=== PATIENT | female | born 1985 | race African-American/Black ===

== ENCOUNTER 2017-07-28 23:13 | Emergency (ER) | payer OTHER ==
[~2017-07-28] VITALS: Ht 162.6 cm; Wt 59.0 kg
[2017-07-28 23:47] LABS: URINE BILIRUBIN NEGATIVE (Negative); URINE BLOOD 2+ (Negative); URINE CLARITY SL CLOUDY; URINE COLOR YELLOW; URINE GLUCOSE-RANDOM NEGATIVE (Negative); URINE KETONES NEGATIVE (Negative); URINE NITRITE-REFLEX NEGATIVE (Negative); URINE PROTEIN 1+ (Negative)
[2017-07-28 23:49] LABS: URINE LEUKOCYTES-REFLEX 3+ (Negative)
[2017-07-29 00:09] LABS: BACTERIA-REFLEX >30 Many /HPF (None Seen); CASTS None Seen /LPF (None Seen); SQUAMOUS 4-10 Moderate /LPF (0-3); URINE RBC 3-10 Few /HPF (0-2); URINE WBC-REFLEX >25 Many /HPF (0-5)
[2017-07-29 00:10] LABS: CRYSTALS None Seen /LPF (None Seen)
[2017-07-29] MEDS ORDERED: MACROBID 100 M100 M1 PO (00:57)
[2017-07-29] MEDS ORDERED: FLAGYL500 MG PO (00:57)
[2017-07-29 01:13] VITALS: BP 101/56
== END 2017-07-29 01:13 | disposition home or self-care (01) ==
LOC: M.ERS 23:13
PROVIDERS: Emergency Medicine Emergency Medical Services
DX: N39.0 Urinary tract infection, site not specified (principal); N76.0 Acute vaginitis; B96.89 Other specified bacterial agents as the cause of diseases classified elsewhere; F17.210 Nicotine dependence, cigarettes, uncomplicated; Z88.1 Allergy status to other antibiotic agents; Z88.2 Allergy status to sulfonamides